=== PATIENT | male | born 1960 | race Caucasian/White ===

== ENCOUNTER 2024-03-27 22:48 | Inpatient (IN) | payer MEDICAID, SELFPAY ==
[2024-03-27 22:49] VITALS: BP 115/93; PULSE 112; RESP 18; TEMP 37.2; O2SAT 93; BMI 20.3
--- NOTE | 2024-03-27 22:56 | CTR_ITS ---
PROCEDURE INFORMATION: Exam: CT Abdomen And Pelvis With Contrast Exam date and time: 03/27/2024 11:25 PM Age: 64 years old Clinical indication: Abdominal pain; Additional info: Abd pain, n/v TECHNIQUE: Imaging protocol: Computed tomography of the abdomen and pelvis with contrast. Radiation optimization: All CT scans at this facility use at least one of these dose optimization techniques: automated exposure control; mA and/or kV adjustment per patient size (includes targeted exams where dose is matched to clinical indication); or iterative reconstruction. Contrast material: OMNI 350; Contrast volume: 100 ml; Contrast route: INTRAVENOUS (IV); COMPARISON: US abdomen complete* [id number] 03/18/2019 9:27 AM RADIATION DOSE METRICS: Total DLP (mGy-cm): 402.93 FINDINGS: Lungs: The lung bases are clear. Heart: Heart size is within normal limits. There is no pericardial effusion or pericardial thickening. Liver: The liver is normal. No hepatic masses are identified. Gallbladder and biliary ducts: The gallbladder is contracted. There is no ductal dilatation. Pancreas: The pancreas is normal. Spleen: The spleen is normal. Adrenal glands: The adrenal glands are normal. Kidneys and ureters: There is normal enhancement of the kidneys. No renal calcifications are identified. There is no hydronephrosis. Bilateral simple renal cysts. There are bilateral subcentimeter renal low-density lesions which are too small for accurate characterization, likely representing simple cysts. Stomach and bowel: Mild colonic diverticulosis without diverticulitis. There is no large or small bowel obstruction. There is no evidence of bowel wall thickening. Appendix: A normal appendix is identified. Intraperitoneal space: No inflammatory changes are identified. There is no free fluid or fluid collection seen. There is no pneumoperitoneum. Vasculature: Atherosclerotic calcifications of the aorta are present. No aneurysm is identified. Lymph nodes: There are few prominent nonspecific gastrohepatic ligament lymph nodes which may be physiologic. No enlarged mesenteric, retroperitoneal, or pelvic sidewall lymph nodes. Urinary bladder: The bladder is unremarkable. Reproductive: There is mild prostatomegaly. Large right hydrocele. Bones/joints: No acute osseous abnormalities are seen. Soft tissues: Small bilateral inguinal hernias containing only fat are present. The soft tissues are otherwise within normal limits. CT/CT abdomen pelvis w con* [id number] IMPRESSION: 1. No acute intra-abdominal or pelvic process. 2. There are few prominent nonspecific gastrohepatic ligament lymph nodes which may be physiologic. 3. Other nonemergent findings above. COMMENTS: Consistent with the [employer]'s Incidental Findings Committee white paper (J Am Johnnie Radiol 2018): Any incidental renal lesion less than 1 cm or classified as too small to characterize, or any incidental cystic renal lesion characterized as simple-appearing, is likely benign. No follow-up imaging is recommended for these lesions per consensus recommendations based on imaging criteria.
[2024-03-27 23:06] LABS: Basophils # 0.2 10^3/uL (0.0-0.1); Basophils % 0.4 %; Eosinophils % 0.1 %; Hematocrit 38.4 % (37-53); Lymphocytes # 2.2 10^3/uL (0.8-4.8); Lymphocytes % 4.2 %; Mean Corpuscular HGB Conc 32.8 g/dL (30-55); Mean Corpuscular Hemoglobin 31.2 pg (27-33); Mean Platelet Volume 10.5 fL (7.4-10.4); Monocytes # 2.7 10^3/uL (0.2-0.9); Monocytes % 5.2 %; Neutrophils % 87.8 %; Nucleated Red Blood Cells % 0 %; Platelet Count 308 10^3/cmm (157-399); Red Blood Count 4.04 10^6/uL (3.85-5.65); Red Cell Distribution Width 12.3 % (12.1-15.1)
[2024-03-27] MEDS: sodium chloride 0.9% 1,000 ML 999 ML IV (23:06)
[2024-03-27] MEDS: pantoprazole 40 mg SDV 80 MG IVP (23:10)
[2024-03-27 23:25] LABS: INR 1.15 (0.8-1.2)
[2024-03-27 23:26] LABS: Partial Thromboplastin Time 29.9 SECONDS (23.9-36.7)
[2024-03-27] MEDS: iohexol 350 mg/mL 500 mL Btl (per mL) IV (23:27)
[2024-03-27 23:30] LABS: Alanine Aminotransferase 6 U/L (0-41); Albumin Level 3.2 g/dL (3.5-5.2); Alkaline Phosphatase 124 U/L (40-130); Aspartate Amino Transferase 12 U/L (0-40); Blood Urea Nitrogen 37 mg/dL (8-23); C Reactive Protein 36.9 mg/L (0.0-4.9); Calcium 8.1 mg/dL (8.5-10.5); Carbon Dioxide 20 mmol/L (22-29); Chloride 99 mmol/L (98-107); Creatinine Clr Calc Pharmacy 129.7904; Globulin 3.1 g/dL (1.3-4.6); Glomerular Filtration Rate 135.6 mL/min (90-130); Glucose 127 mg/dL (65-115); Lipase 7 U/L (13-60); Osmolality Calculated 294 mOsm/kg (285-295); Sodium 137 mmol/L (136-145); Total Bilirubin 0.6 mg/dL (0.15-1.2); Total Protein 6.3 g/dL (6.6-8.7)
[2024-03-27 23:31] LABS: Anion Gap 21.8 (5-19); Potassium 3.8 mmol/L (3.5-5.1)
[2024-03-27 23:35] LABS: Slide Review Slide Review Perform; White Blood Count 51.69 10^3/uL (3.29-11.43)
[2024-03-28] VITALS (12 sets, daily range): BP systolic 88–106; BP diastolic 48–78; PULSE 60–102; RESP 15–20; TEMP 36.3–36.5; O2SAT 91–96; BMI 16.5
--- NOTE | 2024-03-28 00:41 | ED_ITS ---
HPI - Nausea/Vomiting/Diarrhea 2 General: Chief complaint: Nausea/Vomiting/Diarrhea Stated complaint: N/V Vomiting Blood Time Seen by Provider: 03/27/24 22:56 History of Present Illness: 64-year-old man who [facility] after having coffee-ground emesis today. He says he had not been feeling very well and has had some vomiting. He said the coffee-ground emesis did not start till a couple of hours ago. He says he had hep C at 1 point. Otherwise he does not know of any medical problems. He says he feels weak and lightheaded. No known fevers. No focal abdominal pain but he does report some epigastric discomfort. Review of Systems 2 Narrative: Constitutional symptoms: Negative except as documented in HPI. Skin symptoms: Negative except as documented in HPI. Eye symptoms: Negative except as documented in HPI. ENMT symptoms: Negative except as documented in HPI. Respiratory symptoms: Negative except as documented in HPI. Cardiovascular symptoms: Negative except as documented in HPI. Gastrointestinal symptoms: Negative except as documented in HPI. Genitourinary symptoms: Negative except as documented in HPI. Musculoskeletal symptoms: Negative except as documented in HPI. Neurologic symptoms: Negative except as documented in HPI. Psychiatric symptoms: Negative except as documented in HPI. Endocrine symptoms: Negative except as documented in HPI. PFSH ED 2 PFSH: Medical History Hepatitis C No pertinent past medical history Surgical History No pertinent past surgical history Physical Exam 2 Narrative: EXAM NARRATIVE: General: Alert, no acute distress. Skin: Warm, dry. Patient appears sallow Head: Normocephalic, atraumatic. Neck: Supple, trachea midline. Eye: Extraocular movements are intact. Ears, nose, mouth and throat: mucosa moist. Cardiovascular: Regular, initially slightly tachycardic, normal peripheral perfusion. Respiratory: Lungs are clear to auscultation, respirations are non-labored, breath sounds are equal, Symmetrical chest wall expansion. Gastrointestinal: Soft, Nontender, Non distended Musculoskeletal: Normal ROM, no deformity. Neurological: Alert and oriented, No focal neurological deficit observed. Psychiatric: Cooperative, appropriate mood & affect. Course 2 Vital Signs: Vital signs: Vital Signs Temperature 98.9 F 03/27/24 22:49 Pulse Rate 102 H 03/28/24 01:34 Respiratory Rate 20 H 03/28/24 01:34 Blood Pressure 106/78 03/28/24 01:34 Pulse Oximetry 94 03/28/24 01:34 Oxygen Delivery Me thod Room Air 03/28/24 01:34 MDM - Nausea/Vomiting/Diarrhea Medical Decision Making Medical decision making: Differential diagnosis including but not limited to and based on the above HPI, review of systems and physical exam: With coffee-ground emesis would be concern for an upper GI bleed. CBC, BMP. Also with have concern for pancreatitis so a lipase was ordered. Urinalysis ordered. Coags and a type and screen. Orders placed to evaluate differential diagnosis based on the above differential, HPI and physical exam Lab Review: Laboratory results were reviewed and interpreted by myself the emergency room physician. Patient has a white count of 52,000 which would be worrisome for leukemia. No previous records and patient has no known history. Patient has a hemoglobin of 12.6. I do not have any other lab work to compare to but I do believe he has had upper GI bleeding given that he has a BUN of 37 with a creatinine of 0.6. Repeat CBC shows a decrease in a white count from 52-44,000. Hemoglobin is dropping 12.6-11. CT of the abdomen pelvis with contrast: This shows no acute process. This was reviewed and interpreted by myself the emergency room physician. I also reviewed the radiology report. I reviewed the patient's medical record. Reexamination: Patient remains fairly stable. Heart rate has decreased some. No altered mental status. No increased work of breathing. Consultation: I spoke with Dr. Farooq who is admitting the patient. Assessment and plan: Upper GI bleeding Leukocytosis Hematemesis ?2 L normal saline bolus and broad-spectrum antibiotics as there is some concern that he could be septic with his white count. This may be a leukemia type presentation. ? 80 mg IV Protonix. -I discussed the patient with the hospitalist on-call who is admitting the patient. - Discussed findings and plan with patient. Answered any questions. - All laboratory values were reviewed and interpreted personally by myself, the ER physician - All imaging was reviewed and interpreted personally by myself, the ER physician. - Evaluation and treatment of this problem were appropriate in the emergency setting -I spent a total of >35 minutes of critical care time managing the patient, independent of any other practitioner. -The time involved in the performance of separately reportable procedures was not counted towards critical care time. Lab Data 03/28/24 01:05 03/27/24 23:00 Radiology Impressions Abdomen/Pelvis CT 03/27/24 22:56 IMPRESSION: 1. No acute intra-abdominal or pelvic process. 2. There are few prominent nonspecific gastrohepatic ligament lymph nodes which may be physiologic. 3. Other nonemergent findings above. COMMENTS: Consistent with the [employer]'s Incidental Findings Committee white paper (J Am Johnnie Radiol 2018): Any incidental renal lesion less than 1 cm or classified as too small to characterize, or any incidental cystic renal lesion characterized as simple-appearing, is likely benign. No follow-up imaging is recommended for these lesions per consensus recommendations based on imaging criteria. Laboratory Results WBC 44.85 10^3/uL (3.29-11.43) H* 03/28/24 01:05 RBC 3.49 10^6/uL (3.85-5.65) L 03/28/24 01:05 Hgb 11.00 g/dL (11.27-16.99) L 03/28/24 01:05 Hct 33.7 % (37-53) L 03/28/24 01:05 MCV 96.6 fl (82-101) 03/28/24 01:05 MCH 31.5 pg (27-33) 03/28/24 01:05 MCHC 32.6 g/dL (30-55) 03/28/24 01:05 RDW 12.4 % (12.1-15.1) 03/28/24 01:05 Plt Count 262 10^3/cmm (157-399) 03/28/24 01:05 MPV 10.3 fL (7.4-10.4) 03/28/24 01:05 Neut % (Auto) 86.9 % 03/28/24 01:05 Lymph % (Auto) 4.7 % 03/28/24 01:05 [place] % (Auto) 6.2 % 03/28/24 01:05 Eos % (Auto) 0.0 % 03/28/24 01:05 Baso % (Auto) 0.4 % 03/28/24 01:05 Neut # (Auto) 38.98 10^3/uL (1.8-7.7) H 03/28/24 01:05 Lymph # (Auto) 2.1 10^3/uL (0.8-4.8) 03/28/24 01:05 [place] # (Auto) 2.8 10^3/uL (0.2-0.9) H 03/28/24 01:05 Eos # (Auto) 0.0 10^3/uL (0.0-0.8) 03/28/24 01:05 Baso # (Auto) 0.2 10^3/uL (0.0-0.1) H 03/28/24 01:05 Nucleated RBC % (auto) 0 % 03/28/24 01:05 Nucleated RBCs # 0.0 /100WBC 03/28/24 01:05 PT 15.10 SECONDS (12.1-14.9) H 03/27/24 23:00 INR 1.15 (0.8-1.2) 03/27/24 23:00 APTT 29.9 SECONDS (23.9-36.7) 03/27/24 23:00 D-Dimer 0.86 ug/mLFEU (0-0.59) H 03/27/24 23:00 Sodium 137 mmol/L (136-145) 03/27/24 23:00 Potassium 3.8 mmol/L (3.5-5.1) 03/27/24 23:00 Chloride 99 mmol/L (98-107) 03/27/24 23:00 Carbon Dioxide 20 mmol/L (22-29) L 03/27/24 23:00 Anion Gap 21.8 (5-19) H 03/27/24 23:00 BUN 37 mg/dL (8-23) H 03/27/24 23:00 Creatinine 0.6 mg/dL (0.7-1.2) L 03/27/24 23:00 GFR Calculation 135.6 mL/min (90-130) H 03/27/24 23:00 Glucose 127 mg/dL (65-115) H 03/27/24 23:00 Calculated Osmolality 294 mOsm/kg (285-295) 03/27/24 23:00 Lactic Acid 4.0 mmol/L (0.5-2.2) H 03/27/24 23:41 Uric Acid 4.4 mg/dL (3.4-7.0) 03/27/24 23:00 Calcium 8.1 mg/dL (8.5-10.5) L 03/27/24 23:00 Total Bilirubin 0.6 mg/dL (0.15-1.2) 03/27/24 23:00 AST 12 U/L (0-40) 03/27/24 23:00 ALT 6 U/L (0-41) 03/27/24 23:00 Alkaline Phosphatase 124 U/L (40-130) 03/27/24 23:00 C-Reactive Protein 36.9 mg/L (0.0-4.9) H 03/27/24 23:00 Total Protein 6.3 g/dL (6.6-8.7) L 03/27/24 23:00 Albumin 3.2 g/dL (3.5-5.2) L 03/27/24 23:00 Globulin 3.1 g/dL (1.3-4.6) 03/27/24 23:00 Lipase 7 U/L (13-60) L 03/27/24 23:00 Blood Type O Positive 03/27/24 23:49 Rho(D) Type Rh positive 03/27/24 23:49 Antibody Screen Negative 03/27/24 23:49 All radiology interpretation(s) finalized by discharge Discharge Plan Discharge Patient Disposition: Admitted As Inpatient Clinical Impression: Hematemesis, Leukocytosis Condition: Stable 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
[2024-03-28] MEDS: cefepime 1,000 mg SDV 2000 MG IVP (00:45)
[2024-03-28 01:10] LABS: Basophils # 0.2 10^3/uL (0.0-0.1); Basophils % 0.4 %; Hematocrit 33.7 % (37-53); Lymphocytes # 2.1 10^3/uL (0.8-4.8); Lymphocytes % 4.7 %; Mean Corpuscular HGB Conc 32.6 g/dL (30-55); Mean Corpuscular Hemoglobin 31.5 pg (27-33); Mean Corpuscular Volume 96.6 fl (82-101); Mean Platelet Volume 10.3 fL (7.4-10.4); Monocytes # 2.8 10^3/uL (0.2-0.9); Monocytes % 6.2 %; Neutrophils # 38.98 10^3/uL (1.8-7.7); Neutrophils % 86.9 %; Nucleated Red Blood Cells % 0 %; Platelet Count 262 10^3/cmm (157-399); Red Blood Count 3.49 10^6/uL (3.85-5.65); Red Cell Distribution Width 12.4 % (12.1-15.1)
[2024-03-28] MEDS: vancomycin 1,500 MG/300 ML PIGGYBACK 200 MG IV (01:11)
--- NOTE | 2024-03-28 01:16 | CTR_ITS ---
PROCEDURE INFORMATION: Exam: CT Chest Without Contrast; Diagnostic Exam date and time: 03/28/2024 1:31 AM Age: 64 years old Clinical indication: Abnormal findings; Abnormal diagnostic tests; Abnormal ekg; Additional info: Wbc 52k TECHNIQUE: Imaging protocol: Diagnostic computed tomography of the chest without contrast. Radiation optimization: All CT scans at this facility use at least one of these dose optimization techniques: automated exposure control; mA and/or kV adjustment per patient size (includes targeted exams where dose is matched to clinical indication); or iterative reconstruction. 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 Large left upper lobe mass is inseparable from the mediastinum. 9 mm anterior right upper lobe pulmonary nodule, increased in size compared to 4 mm in 2019. Moderate pulmonary emphysema. Left upper lobe calcified granuloma. No pulmonary consolidation. Pleural spaces: Pleura Heart: Heart size is within normal limits. There is no pericardial effusion or pericardial thickening. Coronary arteries: No coronary artery calcification. Lymph nodes: Mildly enlarged precarinal lymph node measuring 16 x 9 mm. Multiple calcified mediastinal and left hilar lymph nodes. Hilar piyush enlargement is not well assessed due to lack of intravenous contrast. No enlarged axillary lymph nodes Vasculature: Atherosclerotic calcifications of the aorta are present. No aneurysm is identified. Bones/joints: No acute osseous abnormalities are seen. Chronic appearing compression fracture of T4. Severe degenerative change of the left shoulder. Soft tissues: The soft tissues are within normal limits. CT/CT chest con [id number] IMPRESSION: 1. 7.9 x 6.2 x 6.7 cm left suprahilar mass with large area of central necrosis likely originating in the left upper lobe. Tissue sampling is recommended. 2. Mildly enlarged precarinal lymph node measuring 16 x 9 mm. 3. 9 mm anterior right upper lobe pulmonary nodule, increased in size compared to 4 mm in 2019. COMMENTS: The presence of pulmonary emphysema on CT is an independent risk factor for lung cancer. In the absence of a history or active diagnosis of lung cancer, it is recommended that this patient with emphysema be evaluated for enrollment in a low dose CT lung cancer screening program.
[2024-03-28 01:20] LABS: Uric Acid 4.4 mg/dL (3.4-7.0)
--- NOTE | 2024-03-28 01:20 | P.HP_ITS ---
Providers/Chief Complaint 2 Chief Complaint: N/V Vomiting Blood History of Present Illness Cresencio Mcfadden is a 64 year old male with history of untreated hepatitis C, does not follow-up with PCP, does not take any medications at home presented with chief complaint of blood in vomiting. Patient lives with his brother and [id number], smokes 1 pack/day, uses marijuana, no history of IV drug abuse, stating that he drinks alcohol occasionally, presenting today because for the last 24 hours he has been feeling nauseous and experienced 6 episodes of vomiting, with his first episode of vomiting he has been noticing blood that prompted his visit to the ER. In the ER he was diagnosed with significant leukocytosis, leukemia lymphoma panel requested along CT chest abdomen pelvis. Patient is not endorsing any history of cancer in the past. However stating that his father and grandfather had lung cancer. Patient is stating that he has been skinny throughout his life. Patient has received 1 L IV fluids along vancomycin and cefepime, Review of Systems 2 Const: Reports: chills and change in weight Eyes: Denies: change in vision ENMT: Denies: throat pain Card: Denies: chest pain Resp: Reports: dyspnea GI: Reports: nausea and vomiting; Denies: abdominal pain : Denies: flank pain Musc: Denies: neck pain Medications/Allergies Allergies Allergy/AdvReac Type Severity Reaction Status Date / Time No Known Allergies Allergy Verified 03/28/24 00:25 PFSH Acute 2 PFSH: Medical History Hepatitis C No pertinent past medical history Surgical History No pertinent past surgical history Vitals/I&O/Wt Last Vital Signs Temp 98.9 F 03/27/24 22:49 Pulse 112 H 03/27/24 22:49 Resp 18 03/27/24 22:49 BP 115/93 03/27/24 22:49 Pulse Ox 93 03/27/24 22:49 Weight last 48 hrs Weight 54.431 kg Weight 68.039 kg Physical Exam 2 Narrative: Cachectic, malnourished Unkept appearance Skin tattoos S1, S2 Nonfocal neuroexam GCS 15 Sarcopenia No audible stridor or wheezing Family at the bedside Significant muscle mass loss Signs of dehydration present Tachycardia Data 03/28/24 01:05 03/27/24 23:00 A&P Assessment and plan (1) Leukocytosis: (2) Hematemesis: (3) Protein calorie malnutrition: (4) Dehydration: (5) Sarcopenia: Plan Significant leukocytosis with hematemesis High lactic acid High lactic acid likely related to significant dehydration and starvation Start IV fluids There is no active source of infection CT abdomen pelvis unremarkable, no signs of perforation or significant lymphadenopathy other than around gastrohepatic ligament, patient is stating that he has history hepatitis C which was treated successfully Requested CT chest as well Patient is an active smoker endorsing family history of lung cancer Patient does not follow-up with PCP Requesting drug screen and urine screen Patient had received 1 L IV fluids along antibiotics Patient is afebrile Tachycardia and tachypnea is likely related to starvation ketosis which is improving with IV fluids Monitor for development of sepsis Considering cachexia malnourishment I will request PSA CEA level CA 19-9 Full code Walsh diet DVT prophylaxis: Contraindicated would use SCDs for now start Protonix and sucralfate If hemoglobin keeps trending down he may need EGD during this hospitalization Leukemia lymphoma panel sent Attestations 2 Medical Necessity Statement*: More than 2 midnights anticipated Diagnoses Leukocytosis D72.829 Hematemesis K92.0 Protein calorie malnutrition E46 Dehydration E86.0 Sarcopenia M62.84
[2024-03-28 01:29] LABS: White Blood Count 44.85 10^3/uL (3.29-11.43)
[2024-03-28 01:30] LABS: Reflex Lactate Order REFLEX LACTIC ORDERD
[2024-03-28 01:47] LABS: D Dimer 0.86 ug/mLFEU (0-0.59)
[2024-03-28 02:00] LABS: Carcinoembryonic Antigen 5.1 ng/mL (0.0-4.7); Tumor Marker Alpha Fetoprotein 3.3 ng/mL (0-8.3)
[2024-03-28 02:27] LABS: Cancer Antigen 19 9 10.92 U/mL (0-35)
[2024-03-28 02:55] LABS: Lactic Acid level (Lactate) 1.5 mmol/L (0.5-2.2)
[2024-03-28] MEDS: sodium chloride 0.9% 1,000 ML 75 ML IV ×2 (03:45→18:56)
[2024-03-28 06:18] LABS: Basophils # 0.2 10^3/uL (0.0-0.1); Basophils % 0.4 %; Eosinophils # 0.1 10^3/uL (0.0-0.8); Eosinophils % 0.2 %; Hematocrit 32.4 % (37-53); Lymphocytes # 2.6 10^3/uL (0.8-4.8); Lymphocytes % 6.4 %; Mean Corpuscular HGB Conc 33.3 g/dL (30-55); Mean Corpuscular Volume 95.9 fl (82-101); Mean Platelet Volume 10.5 fL (7.4-10.4); Monocytes # 2.7 10^3/uL (0.2-0.9); Monocytes % 6.6 %; Neutrophils # 34.45 10^3/uL (1.8-7.7); Neutrophils % 84.9 %; Nucleated Red Blood Cells % 0 %; Platelet Count 261 10^3/cmm (157-399); Red Blood Count 3.38 10^6/uL (3.85-5.65); Red Cell Distribution Width 12.4 % (12.1-15.1)
[2024-03-28 06:31] LABS: Alanine Aminotransferase < 5 U/L (0-41); Albumin Level 2.7 g/dL (3.5-5.2); Alkaline Phosphatase 97 U/L (40-130); Anion Gap 13.2 (5-19); Aspartate Amino Transferase 9 U/L (0-40); Blood Urea Nitrogen 29 mg/dL (8-23); C Reactive Protein 26.6 mg/L (0.0-4.9); Calcium 7.6 mg/dL (8.5-10.5); Carbon Dioxide 24 mmol/L (22-29); Chloride 105 mmol/L (98-107); Creatinine Clr Calc Pharmacy 115.8683; Globulin 3.1 g/dL (1.3-4.6); Glomerular Filtration Rate 167.4 mL/min (90-130); Glucose 112 mg/dL (65-115); Magnesium 1.6 mg/dL (1.7-2.3); Osmolality Calculated 295 mOsm/kg (285-295); Phosphorus 3.1 mg/dL (2.5-4.5); Potassium 3.2 mmol/L (3.5-5.1); Sodium 139 mmol/L (136-145); Total Bilirubin 0.5 mg/dL (0.15-1.2); Total Protein 5.8 g/dL (6.6-8.7)
[2024-03-28 06:43] LABS: PSA Screen - Urology 1.29 ng/mL (0-4)
[2024-03-28 06:48] LABS: White Blood Count 40.56 10^3/uL (3.29-11.43)
[2024-03-28 06:52] LABS: Thyroid Stimulating Hormone 0.58 uIU/mL (0.27-4.20); Vitamin B12 606 pg/mL (232-1245)
[2024-03-28 07:03] LABS: Estmated Average Glucose 111; Hemoglobin A1C 5.5 % (4.0-6.0)
[2024-03-28 07:34] LABS: Add Urine Microscopic? NO; Charge for UA Resulting for Rev
[2024-03-28 07:50] LABS: Bilirubin Urine Neg (Negative); Blood Urine Neg (Negative); Glucose Urine UA Norm (Normal); Ketones Urine 1+ (Negative); Leukocyte Esterase Urine Negative (Negative); Nitrate Urine Negative (Negative); Protein Urine Neg (Negative); Specific Gravity, Urine 1.005 (1.005-1.030); Urine Appearance Clear (CLEAR); Urine Color Yellow (Yellow); Urobilinogen Urine Neg (Negative); pH Urine 5 (5-7)
[2024-03-28 07:59] LABS: Amphetamines Screen Urine Negative (Negative); Barbiturates Screen Urine Negative (Negative); Benzodiazepines Screen Urine Negative (Negative); Cocaine Screen Urine Negative (Negative); Opiate Screen Urine Negative (Negative); PCP Screen Urine Negative (Negative); THC Screen Urine Positive (Negative)
[2024-03-28] MEDS: pantoprazole 40 mg SDV IVP ×2 (08:18→18:52)
[2024-03-28] MEDS: levoFLOXacin 750 mg Tablet PO (08:18)
[2024-03-28] MEDS: sucralfate 1 gm Tablet PO ×2 (08:18→14:56)
[2024-03-28] MEDS: morphine IR 15 mg Tablet PO ×2 (08:19→14:58)
--- NOTE | 2024-03-28 15:34 | P.TS_ITS ---
Transfer Summary Providers Date of Admission: 03/28/24 02:18 Date of Discharge/Transfer: 03/28/24 Attending Provider at Admission: Ben Farooq MD Attending Provider at Transfer: Roseanne Heredia MD Transfer Plans: Anticipated date of transfer: 03/28/24 . Receiving Facility: [facility] . Receiving Provider: Dr. Pat/ hospitalist . Diagnoses at Discharge Discharge Diagnosis (1) Leukocytosis: Status: Acute (2) Hematemesis: Status: Acute (3) Protein calorie malnutrition: Status: Acute (4) Dehydration: Status: Acute (5) Sarcopenia: Status: Acute (6) Lung mass: Status: Acute (7) Mediastinal lymphadenopathy: Status: Acute Reason for Visit Reason for Visit N/V Vomiting Blood Hospital Course Hospital Course 64-year-old male who does not relate any significant past medical history apart from treated hepatitis C several years ago and marijuana use presented to [facility] last night with chief complaints of hematemesis. Patient had had nausea and vomiting approximately 24 hours prior to admission. He states that he had about 6 episodes of vomiting and with the last 1 he noted blood streaking and therefore presented into the emergency room. His hemoglobin upon initial arrival was 12.6, this has trended down to 10.8 today. He has not had any episodes of hematemesis in the hospital. Incidentally he was also found to have several other abnormalities including leukocytosis of 51,000, with repeat number at 44,000. Therefore presumed to be accurate. Differential noting to be predominantly neutrophilia 84.9%. Peripheral smear is pending at this time. CT of the abdomen and pelvis was without any acute abnormalities, however CT of the chest found a 7.9 x 6.2 x 6.7 cm suprahilar mass with large area of central necrosis likely originating from the left upper lobe. This mass was noted to be inseparable from the mediastinum. He was also found to have a right-sided pulmonary nodule, 9 mm in size. Note made of enlarged precarinal lymph node measuring 16 x 9 mm. Patient denies any known history of malignancy in the past. CT of the abdomen made note a few prominent nonspecific gastrohepatic ligament lymph nodes which may be physiologic. There were no enlarged mesenteric retroperitoneal pelvic sidewall lymph nodes. Case was discussed with interventional radiology, recommended bronchoscopic approach for tissue diagnosis rather than anterior IR approach as the mass appears to be more easily accessible via bronchoscopy. He has received cefepime --> ceftriaxone, a dose of iv vancomycin and levaquin during hospital course. Given the above findings, patient would need additional testing involving multiple specialties including pulmonology for bronchoscopy and tissue diagnosis of lung mass, hematology for leukocytosis, concern for underlying malignancy and gastroenterology given original presentation with hematemesis and downtrending hemoglobin. May need upper GI endoscopy additionally. we do not currently have pulmonology or inpatient hematology services at our center. He is therefore being transferred to [facility] where all the specialties are available. Physical Exam Narrative: General: No acute distress, AO x3 HEENT: PERRLA, pupils bilaterally equal and reactive, pallors not present Chest: Normal vesicular breath sounds, no added sounds, equal good air entry bilaterally CVS: S1-S2 regular, no murmurs, no tachycardia, no gallops, no rubs Abdomen: Soft, nontender, no organomegaly, bowel sounds present Neuro: No focal deficits, no facial deformity, AO x3, power 5/5 in all limbs TS Data Studies Completed and Pending Pending at discharge Category Date Time Status Blood Culture Stat Lab 03/28/24 12:55 Results HIV 1&2 Antigen & Antibody Routine Lab 03/28/24 05:59 Received LAB Peripheral Smear Routine Lab 03/28/24 05:59 Received Completed Studies During Hospitalization Category Date Time Status CT abdomen pelvis w con* [id number] Stat Cat Scan 03/27/24 22:[address] chest wo con [id number] Stat Cat Scan 03/28/24 01:16 Completed Laboratory Last Values WBC 40.56 10^3/uL (3.29-11.43) H* 03/28/24 05:59 RBC 3.38 10^6/uL (3.85-5.65) L 03/28/24 05:59 Hgb 10.80 g/dL (11.27-16.99) L 03/28/24 05:59 Hct 32.4 % (37-53) L 03/28/24 05:59 MCV 95.9 fl (82-101) 03/28/24 05:59 MCH 32.0 pg (27-33) 03/28/24 05:59 MCHC 33.3 g/dL (30-55) 03/28/24 05:59 RDW 12.4 % (12.1-15.1) 03/28/24 05:59 Plt Count 261 10^3/cmm (157-399) 03/28/24 05:59 MPV 10.5 fL (7.4-10.4) H 03/28/24 05:59 Neut % (Auto) 84.9 % 03/28/24 05:59 Lymph % (Auto) 6.4 % 03/28/24 05:59 [place] % (Auto) 6.6 % 03/28/24 05:59 Eos % (Auto) 0.2 % 03/28/24 05:59 Baso % (Auto) 0.4 % 03/28/24 05:59 Neut # (Auto) 34.45 10^3/uL (1.8-7.7) H 03/28/24 05:59 Lymph # (Auto) 2.6 10^3/uL (0.8-4.8) 03/28/24 05:59 [place] # (Auto) 2.7 10^3/uL (0.2-0.9) H 03/28/24 05:59 Eos # (Auto) 0.1 10^3/uL (0.0-0.8) 03/28/24 05:59 Baso # (Auto) 0.2 10^3/uL (0.0-0.1) H 03/28/24 05:59 Nucleated RBC % (auto) 0 % 03/28/24 05:59 Nucleated RBCs # 0.0 /100WBC 03/28/24 05:59 PT 15.10 SECONDS (12.1-14.9) H 03/27/24 23:00 INR 1.15 (0.8-1.2) 03/27/24 23:00 APTT 29.9 SECONDS (23.9-36.7) 03/27/24 23:00 D-Dimer 0.86 ug/mLFEU (0-0.59) H 03/27/24 23:00 Sodium 139 mmol/L (136-145) 03/28/24 05:59 Potassium 3.2 mmol/L (3.5-5.1) L 03/28/24 05:59 Chloride 105 mmol/L (98-107) 03/28/24 05:59 Carbon Dioxide 24 mmol/L (22-29) 03/28/24 05:59 Anion Gap 13.2 (5-19) 03/28/24 05:59 BUN 29 mg/dL (8-23) H 03/28/24 05:59 Creatinine 0.5 mg/dL (0.7-1.2) L 03/28/24 05:59 GFR Calculation 167.4 mL/min (90-130) H 03/28/24 05:59 Glucose 112 mg/dL (65-115) 03/28/24 05:59 Estimat Average Glucose 111 03/28/24 05:59 Hemoglobin A1c 5.5 % (4.0-6.0) 03/28/24 05:59 Calculated Osmolality 295 mOsm/kg (285-295) 03/28/24 05:59 Lactic Acid 4.0 mmol/L (0.5-2.2) H 03/27/24 23:41 Lactic Acid (Sepsis) 1.5 mmol/L (0.5-2.2) 03/28/24 02:20 Uric Acid 4.4 mg/dL (3.4-7.0) 03/27/24 23:00 Calcium 7.6 mg/dL (8.5-10.5) L 03/28/24 05:59 Phosphorus 3.1 mg/dL (2.5-4.5) 03/28/24 05:59 Magnesium 1.6 mg/dL (1.7-2.3) L 03/28/24 05:59 Total Bilirubin 0.5 mg/dL (0.15-1.2) 03/28/24 05:59 AST 9 U/L (0-40) 03/28/24 05:59 ALT < 5 U/L (0-41) 03/28/24 05:59 Alkaline Phosphatase 97 U/L (40-130) 03/28/24 05:59 C-Reactive Protein 26.6 mg/L (0.0-4.9) H 03/28/24 05:59 Total Protein 5.8 g/dL (6.6-8.7) L 03/28/24 05:59 Albumin 2.7 g/dL (3.5-5.2) L 03/28/24 05:59 Globulin 3.1 g/dL (1.3-4.6) 03/28/24 05:59 Lipase 7 U/L (13-60) L 03/27/24 23:00 Tumor Marker AFP 3.3 ng/mL (0-8.3) 03/27/24 23:00 Carcinoembryonic Ag 5.1 ng/mL (0.0-4.7) H 03/27/24 23:00 CA 19-9 Antigen 10.92 U/mL (0-35) 03/27/24 23:00 PSA Screen 1.29 ng/mL (0-4) 03/28/24 05:59 Vitamin B12 606 pg/mL (232-1245) 03/28/24 05:59 TSH 0.58 uIU/mL (0.27-4.20) 03/28/24 05:59 Urine Color Yellow (Yellow) 03/28/24 07:10 Urine Appearance Clear (CLEAR) 03/28/24 07:10 Urine pH 5 (5-7) 03/28/24 07:10 Ur Specific [place] 1.005 (1.005-1.030) 03/28/24 07:10 Urine Protein Neg (Negative) 03/28/24 07:10 Urine Glucose (UA) Norm (Normal) 03/28/24 07:10 Urine Ketones 1+ (Negative) H 03/28/24 07:10 Urine Blood Neg (Negative) 03/28/24 07:10 Urine Nitrate Negative (Negative) 03/28/24 07:10 Urine Bilirubin Neg (Negative) 03/28/24 07:10 Urine Urobilinogen Neg mg/dL (Negative) 03/28/24 07:10 Ur Leukocyte Esterase Negative (Negative) 03/28/24 07:10 Urine Opiates Screen Negative ng/mL (Negative) 03/28/24 07:10 Ur Barbiturates Screen Negative ng/mL (Negative) 03/28/24 07:10 Ur Phencyclidine Scrn Negative ng/mL (Negative) 03/28/24 07:10 Ur Amphetamines Screen Negative ng/mL (Negative) 03/28/24 07:10 U Benzodiazepines Scrn Negative ng/mL (Negative) 03/28/24 07:10 Urine Cocaine Screen Negative ng/mL (Negative) 03/28/24 07:10 U Marijuana (THC) Screen Positive ng/mL (Negative) H 03/28/24 07:10 Blood Type O Positive 07/11/24 23:49 Rho(D) Type Rh positive 03/27/24 23:49 Antibody Screen Negative 03/27/24 23:49 Radiology Impressions Abdomen/Pelvis CT 03/27/24 22:56 IMPRESSION: 1. No acute intra-abdominal or pelvic process. 2. There are few prominent nonspecific gastrohepatic ligament lymph nodes which may be physiologic. 3. Other nonemergent findings above. COMMENTS: Consistent with the [employer]'s Incidental Findings Committee white paper (J Am Johnnie Radiol 2018): Any incidental renal lesion less than 1 cm or classified as too small to characterize, or any incidental cystic renal lesion characterized as simple-appearing, is likely benign. No follow-up imaging is recommended for these lesions per consensus recommendations based on imaging criteria. Chest CT 03/28/24 01:16 IMPRESSION: 1. 7.9 x 6.2 x 6.7 cm left suprahilar mass with large area of central necrosis likely originating in the left upper lobe. Tissue sampling is recommended. 2. Mildly enlarged precarinal lymph node measuring 16 x 9 mm. 3. 9 mm anterior right upper lobe pulmonary nodule, increased in size compared to 4 mm in 2019. COMMENTS: The presence of pulmonary emphysema on CT is an independent risk factor for lung cancer. In the absence of a history or active diagnosis of lung cancer, it is recommended that this patient with emphysema be evaluated for enrollment in a low dose CT lung cancer screening program. Recent Clincial Data Last Vital Signs Temp 97.7 F 03/28/24 11:54 Pulse 60 03/28/24 11:54 Resp 18 03/28/24 14:58 BP 91/53 03/28/24 11:54 Pulse Ox 96 03/28/24 11:54 O2 Del Method Room Air 03/28/24 11:54 Vital Signs Temp Pulse Resp BP Pulse Ox O2 Del Method 03/28/24 14:58 18 03/28/24 11:54 97.7 F 60 18 91/53 96 Room Air 03/28/24 08:28 70 16 94 Room Air 03/28/24 08:21 97.4 F L 85 18 101/68 94 Room Air 03/28/24 08:19 18 Intake & Output/Weight 03/26/24 03/27/24 03/28/24 03/29/24 06:59 06:59 06:59 06:59 Intake Total 1300 / 1300 960 / 960 Balance 1300 / 1300 960 / 960 Weight 54.885 kg Vitals Last Vital Signs Temp 97.7 F 03/28/24 11:54 Pulse 60 03/28/24 11:54 Resp 18 03/28/24 14:58 BP 91/53 03/28/24 11:54 Pulse Ox 96 03/28/24 11:54 O2 Del Method Room Air 03/28/24 11:54 TS Medications Medications Acetaminophen (Acetaminophen 500 Mg Tablet) 500 mg PO Q4H PRN PRN Reason: fever Albuterol/Ipratropium (Ipratropium-Albuterol 3 Ml Neb) 3 ml INHALATION Q6H PRN PRN Reason: SHORTNESS OF BREATH Sodium Chloride (Sodium Chloride 0.9%) 1,000 mls @ 75 mls/hr IV .[id number] [facility] Last Admin: 03/28/24 03:45 Dose: 75 mls/hr Sodium Chloride (Sodium Chloride 0.9%) 1,000 mls @ 999 mls/hr IV .Q1H1M ONE Stop: 03/28/24 16:07 Levofloxacin (Levofloxacin 750 Mg Tablet) 750 mg PO DAILY [facility]; Protocol Last Admin: 03/28/24 08:18 Dose: 750 mg Morphine Sulfate (Morphine Ir 15 Mg Tablet) 15 mg PO Q6H PRN PRN Reason: MODERATE PAIN Last Admin: 03/28/24 14:58 Dose: 15 mg Ondansetron HCl (Ondansetron 2 Mg/Ml Sdv 2 Ml) 4 mg IVP Q6H PRN PRN Reason: NAUSEA AND VOMITING Pantoprazole Sodium (Pantoprazole 40 Mg Sdv) 40 mg IVP BID [facility] Last Admin: 03/28/24 08:18 Dose: 40 mg Senna/Docusate Sodium (Sennosides-Docusate Tablet) 1 tab PO DAILY [facility] Last Admin: 03/28/24 08:26 Dose: Not Given Sucralfate (Sucralfate 1 Gm Tablet) 1 gm PO TID [facility] Last Admin: 03/28/24 14:56 Dose: 1 gm Discontinued Medications Cefepime HCl (Cefepime 1,000 Mg Sdv) 2,000 mg IVP ONCE ONE; Protocol Stop: 03/28/24 00:14 Last Admin: 03/28/24 00:45 Dose: 2,000 mg Sodium Chloride (Sodium Chloride 0.9%) 1,000 mls @ 999 mls/hr IV .Q1H1M ONE Stop: 03/27/24 23:56 Last Infusion: 03/28/24 03:33 Dose: Infused Vancomycin HCl / Sodium (Chloride) 250 mls @ 0 mls/hr [id number] PROTOCOL NARA; Protocol Vancomycin/PEG/NADA/Lysine/Water (Vancocin) 1,500 mg in 300 mls @ 200 mls/hr IV ONCE ONE Stop: 03/28/24 01:59 Last Infusion: 03/28/24 03:33 Dose: Infused Vancomycin/PEG/NADA/Lysine/Water (Vancocin) 1,250 mg in 250 mls @ 250 mls/hr IV Q12H [facility] Iohexol (Iohexol 350 Mg/Ml 500 Ml Btl (Per Ml)) 0 ml IV ONCE ONE Stop: 03/27/24 23:28 Last Admin: 03/27/24 23:27 Dose: 100 ml Pantoprazole Sodium (Pantoprazole 40 Mg Sdv) 80 mg IVP ONCE ONE Stop: 03/27/24 22:57 Last Admin: 03/27/24 23:10 Dose: 80 mg Allergies No Known Allergies Allergy (Verified 03/28/24 00:25) Home Medications No Known Home Medications 03/28/24 [History Confirmed 03/28/24] Discharge Plan Discharge Patient Disposition: Xfer Other Condition: Stable Prescriptions: No Action No Known Home Medications Discharge Orders: Transfer Out of Facility (Order); Ordered 03/28/24 Ordered By: Roseanne Heredia Patient Instructions: Opioid Safety Transfer Attestations Time Spent in Transfer Care: greater than 30 min Quality Metrics Clinical Quality Measures [ No reported AMI, CVA or VTE this stay] Coding Level of Care Code Acute Code for Chg Fwd Diagnoses Leukocytosis D72.829 Hematemesis K92.0 Protein calorie malnutrition E46 Dehydration E86.0 Sarcopenia M62.84 Lung mass R91.8 Mediastinal lymphadenopathy R59.0
[2024-03-28 15:42] LABS: HIV 1 & 2 Antibody Non-Reactive (Non-Reactiv); HIV 1 & 2 Antigen Non-Reactive (Non-Reactiv)
[2024-03-28 15:47] LABS: LAB Peripheral Smear Sent for Review
[2024-03-28] MEDS: sodium chloride 0.9% 1,000 ML 999 ML IV ×2 (16:36→17:59)
[2024-03-28 18:28] LABS: Hematocrit 28.4 % (37-53)
[2024-03-28] MEDS: cefTRIAXone 1,000 mg SDV 1000 MG IVP (18:53)
[2024-03-31 11:30] LABS: Leukemia Profile (BBPL) See Report
== END 2024-03-28 18:45 | disposition short-term general hospital (02) | DRG 378 ==
LOC: ER 03-28 01:50 → MEDSURG 03-28 02:18
PROVIDERS: Nurse Practitioner Family; Admitting Provider Internal Medicine; Emergency Provider Emergency Medicine; Visit Provider Student in an Organized Health Care Education/Training Program
DX: K92.0 Hematemesis (principal); E46 Unspecified protein-calorie malnutrition; Z68.1 Body mass index [BMI] 19.9 or less, adult; D72.829 Elevated white blood cell count, unspecified; E86.0 Dehydration; M62.84 Sarcopenia; R59.0 Localized enlarged lymph nodes; R91.1 Solitary pulmonary nodule; F17.210 Nicotine dependence, cigarettes, uncomplicated; F12.90 Cannabis use, unspecified, uncomplicated; B19.20 Unspecified viral hepatitis C without hepatic coma
CPT/HCPCS: 36415; 71250; 74177; 80053; 80306; 80503; 81003; 82105; 82378; 82607; 83036; 83605; 83690; 83735; 84100; 84443; 84550; 85014; 85018; 85025; 85378; 85610; 85730; 86140; 86301; 86850; 86900; 87040; 87806; 88184; 88185; 96374; 96375; 97161; 99285; C9113; G0103; J0692; J0696; J3370; J7030; Q9967

== ENCOUNTER 2024-05-27 19:57 | Emergency (ER) | payer MEDICAID, SELFPAY ==
[2024-05-27] VITALS (11 sets, daily range): BP systolic 76–114; BP diastolic 45–65; PULSE 88–190; RESP 16–18; TEMP 36.5; O2SAT 91–100; BMI 13.5
--- NOTE | 2024-05-27 20:07 | ECG_ITS ---
[facility] Test Date: 2024-05-27 Pat Name: Cresencio Mcfadden Department: Room: Gender: Male [employer]: : 1960 Requested By: Navya Dozier Order Number: [id number] Gómez MD: Mandi Mei M.D. Measurements Intervals [place] Rate: 96 P: 74 MI: 91 QRS: 85 QRSD: 88 T: 86 QT: 380 QTc: 482 Interpretive Statements SINUS RHYTHM WITH SHORT MI INTERVAL WITH FREQUENT SUPRAVENTRICULAR PREMATURE COMPLEXES ABNORMAL RHYTHM ECG No previous ECG available for comparison Electronically Signed On 05-27-2024 21:40:27 CDT by Mandi Mei M.D. [email or web address]
--- NOTE | 2024-05-27 20:07 | CTR_ITS ---
PROCEDURE INFORMATION: Exam: CT Head Without Contrast Exam date and time: 05/27/2024 9:03 PM Age: 64 years old Clinical indication: Weakness, extremity TECHNIQUE: Imaging protocol: Computed tomography of the head without contrast. Radiation optimization: All CT scans at this facility use at least one of these dose optimization techniques: automated exposure control; mA and/or kV adjustment per patient size (includes targeted exams where dose is matched to clinical indication); or iterative reconstruction. COMPARISON: CT head wo con* [id number] 04/03/2019 10:53 PM RADIATION DOSE METRICS: Total DLP (mGy-cm): 1126 FINDINGS: Brain: No acute intracranial hemorrhage. Vasogenic edema in the left frontal lobe and to a lesser degree in the right occipital lobe. There are ill-defined lesions in both regions (series 4, images 23 and 44) concerning for metastatic disease given history of metastasis. Cerebral ventricles: No ventriculomegaly. Paranasal sinuses: Visualized sinuses are unremarkable. No fluid levels. Mastoid air cells: Visualized mastoid air cells are well aerated. Bones: Unremarkable. No acute fracture. Soft tissues: Unremarkable. CT/CT head wo con* [id number] IMPRESSION: Brain metastasis in the left frontal and right occipital lobes with surrounding vasogenic edema.
--- NOTE | 2024-05-27 20:07 | XRR_ITS ---
PROCEDURE INFORMATION: Exam: XR Chest Exam date and time: 05/27/2024 8:15 PM Age: 64 years old Clinical indication: Shortness of breath; Additional info: Weakness TECHNIQUE: Imaging protocol: Radiologic exam of the chest. Views: 1 view. COMPARISON: CT chest con [id number] 03/28/2024 1:31 AM FINDINGS: Lungs: Large mass in the left hilar station is again demonstrated and seen to better advantage on the chest CT dated 03/28/2024. This now extends out to the lateral aspect of the left mid lung field. Pleural spaces: Unremarkable. No pleural effusion. No pneumothorax. Heart/Mediastinum: Unremarkable. No cardiomegaly. Bones/joints: Unremarkable. XR/XR chest 1V portable [id number] IMPRESSION: Large mass in the left hilar station is again demonstrated and seen to better advantage on the chest CT dated 03/28/2024. This now extends out to the lateral aspect of the left mid lung field.
[2024-05-27 20:17] LABS: Basophils # 0.1 10^3/uL (0.0-0.1); Basophils % 0.1 %; Eosinophils # 0.1 10^3/uL (0.0-0.8); Eosinophils % 0.1 %; Hematocrit 30.5 % (37-53); Lymphocytes # 2.3 10^3/uL (0.8-4.8); Lymphocytes % 3.6 %; Mean Corpuscular HGB Conc 31.8 g/dL (30-55); Mean Corpuscular Hemoglobin 27.5 pg (27-33); Mean Corpuscular Volume 86.4 fl (82-101); Mean Platelet Volume 10.8 fL (7.4-10.4); Monocytes # 2.9 10^3/uL (0.2-0.9); Monocytes % 4.6 %; Neutrophils # 56.12 10^3/uL (1.8-7.7); Neutrophils % 88.3 %; Nucleated Red Blood Cells % 0 %; Platelet Count 316 10^3/cmm (157-399); Red Blood Count 3.53 10^6/uL (3.85-5.65); Red Cell Distribution Width 15.2 % (12.1-15.1)
--- NOTE | 2024-05-27 20:24 | ED_ITS ---
HPI - Weakness 2 General: Chief complaint: Weakness Stated complaint: WEAKNESS Time Seen by Provider: 05/27/24 19:59 History of Present Illness: 64-year-old man with a history of lung c ancer who presents emergency room by ambulance with weakness. He is complaining of generalized weakness as well as worse right-sided weakness. This is been for several days. He has been following. He supposed to go for radiation therapy yesterday but was too weak to go. He does not think he hit his head. He does not have any chest pain. Currently no altered mental status and he has slight increase in weakness of his right side versus his left on exam. Review of Systems 2 Narrative: Constitutional symptoms: Negative except as documented in HPI. Skin symptoms: Negative except as documented in HPI. Eye symptoms: Negative except as documented in HPI. ENMT symptoms: Negative except as documented in HPI. Respiratory symptoms: Negative except as documented in HPI. Cardiovascular symptoms: Negative except as documented in HPI. Gastrointestinal symptoms: Negative except as documented in HPI. Genitourinary symptoms: Negative except as documented in HPI. Musculoskeletal symptoms: Negative except as documented in HPI. Neurologic symptoms: Negative except as documented in HPI. Psychiatric symptoms: Negative except as documented in HPI. Endocrine symptoms: Negative except as documented in HPI. PFSH ED 2 PFSH: Medical History Hepatitis C No pertinent past medical history Surgical History No pertinent past surgical history Physical Exam 2 Narrative: EXAM NARRATIVE: General: Alert, no acute distress. Skin: Warm, dry. Head: Normocephalic, atraumatic. Neck: Supple, trachea midline. Eye: Extraocular movements are intact. Ears, nose, mouth and throat: Dry oral mucosa Cardiovascular: Regular, Normal peripheral perfusion. Respiratory: Lungs are clear to auscultation, respirations are non-labored, breath sounds are equal, Symmetrical chest wall expansion. Gastrointestinal: Soft, Nontender, Non distended Musculoskeletal: Normal ROM, no deformity. Neurological: Alert and oriented, No focal neurological deficit observed. Possible slight weakness in his right leg and arm compared to his left. He can lift both off the bed. Psychiatric: Cooperative, appropriate mood & affect. Course 2 Vital Signs: Vital signs: Vital Signs Temperature 97.7 F 05/27/24 19:59 Pulse Rate 105 H 05/27/24 22:31 Respiratory Rate 18 05/27/24 22:31 Blood Pressure 88/58 05/27/24 22:31 Pulse Oximetry 95 05/27/24 22:31 Oxygen Delivery Me thod Room Air 05/27/24 19:59 MDM - Weakness Medical Decision Making Medical decision making: Differential diagnosis for patient presenting with generalized weakness including but not limited to and based on the above HPI, review of systems and physical exam: Sepsis. Dehydration. Renal failure. Electrolyte abnormalities. Anemia. Congestive heart failure. Hypotension. Coronary syndrome. Hepatitis. Cirrhosis. Infections such as pneumonia, urinary tract infection, [place]ne illness, Cellulitis, Viral infections including influenza and Covid-19. Workup: labwork and lab/exam driven imaging ordered to evaluate, rule in and rule out above pathologies. Chest x-ray: Large mass on the left hilar station is demonstrated. Appears larger. This was reviewed and interpreted by myself the emergency room physician. I also reviewed the radiology report. CT of the chest without contrast: Enlarging left suprahilar mass. New pulmonary nodules. New pericardial effusion. This was reviewed and interpreted by myself the emergency room physician. I also reviewed the radiology report. CT of the head without contrast: Brain mets in the left frontal and right occipital lobes with surrounding vasogenic edema. Lab Review: Laboratory results were reviewed and interpreted by myself the emergency room physician. White count is 64,000 today. Last 4 measurements back in April were in the 40,000 range. I reviewed the patient's medical record. Reexamination: Patient remained stable. No increased work of breathing. No altered mental status. No focal motor deficits. Patient continues to have right-sided weakness. Consultation: I spoke with Dr. Chavez with the neurology service at [facility] in [place]. He is excepted the patient in transfer. He agrees with Decadron and recommends Keppra. Assessment and plan: Lung cancer Metastasis to brain Right-sided weakness ?IV Keppra and IV Decadron given in the emergency room - Discharged home - Discussed findings and plan with patient. Answered any questions. - All laboratory values were reviewed and interpreted personally by myself, the ER physician - All imaging was reviewed and interpreted personally by myself, the ER physician. - Evaluation and treatment of this problem were appropriate in the emergency setting -I spent a total of >35 minutes of critical care time managing the patient, independent of any other practitioner. -The time involved in the performance of separately reportable procedures was not counted towards critical care time. Lab Data 05/27/24 19:53 05/27/24 19:53 Radiology Impressions Chest X-Ray 05/27/24 20:07 IMPRESSION: Large mass in the left hilar station is again demonstrated and seen to better advantage on the chest CT dated 03/28/2024. This now extends out to the lateral aspect of the left mid lung field. Head CT 05/27/24 20:07 IMPRESSION: Brain metastasis in the left frontal and right occipital lobes with surrounding vasogenic edema. ADDENDUM: 05/27/24 2223 THIS REPORT CONTAINS FINDINGS THAT MAY BE CRITICAL TO PATIENT CARE. The findings were verbally communicated via telephone conference with [place] PICKERING at 10:21 PM CDT on 05/27/2024. The findings were acknowledged and understood. Chest CT 05/27/24 20:37 IMPRESSION: 1. Enlarging left suprahilar mass measuring up to at least 10.4 x 9.0 cm, previously 8.0 x 5.3 cm consistent with progression of neoplastic disease. 2. The left upper lobe pulmonary nodule (series 7, image 17) measures 1.1 x 0.7 cm, previously 1.0 x 0.7 cm. While there has been no interval increase in size this is still concerning for metastatic disease. 3. New 1.0 x 0.8 cm pulmonary nodule in the posterior aspect of the left upper lobe (series 7, image 16) concerning for metastatic disease. 4. Two AP window lymph nodes measuring up to 10 mm and 11 mm in short axis may represent metastatic disease. 5. New pericardial effusion measuring up to 13 mm in thickness along the right heart border. Laboratory Results WBC 63.58 10^3/uL (3.29-11.43) H* 05/27/24 19:53 RBC 3.53 10^6/uL (3.85-5.65) L 05/27/24 19:53 Hgb 9.70 g/dL (11.27-16.99) L 05/27/24 19:53 Hct 30.5 % (37-53) L 05/27/24 19:53 MCV 86.4 fl (82-101) 05/27/24 19:53 MCH 27.5 pg (27-33) 05/27/24 19:53 MCHC 31.8 g/dL (30-55) 05/27/24 19:53 RDW 15.2 % (12.1-15.1) H 05/27/24 19:53 Plt Count 316 10^3/cmm (157-399) 05/27/24 19:53 MPV 10.8 fL (7.4-10.4) H 05/27/24 19:53 Neut % (Auto) 88.3 % 05/27/24 19:53 Lymph % (Auto) 3.6 % 05/27/24 19:53 [place] % (Auto) 4.6 % 05/27/24 19:53 Eos % (Auto) 0.1 % 05/27/24 19:53 Baso % (Auto) 0.1 % 05/27/24 19:53 Neut # (Auto) 56.12 10^3/uL (1.8-7.7) H 05/27/24 19:53 Lymph # (Auto) 2.3 10^3/uL (0.8-4.8) 05/27/24 19:53 [place] # (Auto) 2.9 10^3/uL (0.2-0.9) H 05/27/24 19:53 Eos # (Auto) 0.1 10^3/uL (0.0-0.8) 05/27/24 19:53 Baso # (Auto) 0.1 10^3/uL (0.0-0.1) 05/27/24 19:53 Nucleated RBC % (auto) 0 % 05/27/24 19:53 Nucleated RBCs # 0.0 /100WBC 05/27/24 19:53 Specimen Type Arterial 05/27/24 20:34 Sample Site Brachial, right 05/27/24 20:34 ABG pH 7.51 (7.35-7.45) H 05/27/24 20:34 ABG pCO2 42.4 mmHg (35-45) 05/27/24 20:34 ABG pO2 93.4 mmHg (80.0-100.0) 05/27/24 20:34 ABG HCO3 33.4 mmol/L (22-26) H 05/27/24 20:34 ABG O2 Saturation 98.3 05/27/24 20:34 ABG Base Excess 9.4 mmol/L (-2.0-2.0) H 05/27/24 20:34 [place] Test N/a 05/27/24 20:34 A-a O2 Gradient 0.4 mmHg (5-10) L 05/27/24 20:34 Hematocrit 29.0 % (42-52) L 05/27/24 20:34 Hgb O2 Saturation 96.1 % (95-100) 05/27/24 20:34 Carboxyhemoglobin 1.2 %THgb (0.4-20.1) 05/27/24 20:34 Methemoglobin 0.9 % (0.4-1.5) 05/27/24 20:34 Total Hemoglobin 9.5 g/dL (14-18) L 05/27/24 20:34 Sodium 135.0 mmol/L (131-143) 05/27/24 20:34 Potassium 3.2 mmol/L (3.5-5.0) L 05/27/24 20:34 Glucose 126.0 mg/dL (70-115) H 05/27/24 20:34 Ionized Calcium 1.2 mmol/L (1.1-1.4) 05/27/24 20:34 O2 Delivery Device Nc 05/27/24 20:34 O2 Liters/Min 2.0 % 05/27/24 20:34 [place] Operator ID [email or web address] 05/27/24 20:34 Sodium 133 mmol/L (136-145) L 05/27/24 19:53 Potassium 3.5 mmol/L (3.5-5.1) 05/27/24 19:53 Chloride 91 mmol/L (98-107) L 05/27/24 19:53 Carbon Dioxide 29 mmol/L (22-29) 05/27/24 19:53 Anion Gap 16.5 (5-19) 05/27/24 19:53 BUN 8 mg/dL (8-23) 05/27/24 19:53 Creatinine 0.6 mg/dL (0.7-1.2) L 05/27/24 19:53 GFR Calculation 135.6 mL/min (90-130) H 05/27/24 19:53 Glucose 108 mg/dL (65-115) 05/27/24 19:53 Calculated Osmolality 275 mOsm/kg (285-295) L 05/27/24 19:53 Lactic Acid 1.4 mmol/L (0.5-2.2) 05/27/24 20:17 Calcium 8.6 mg/dL (8.5-10.5) 05/27/24 19:53 Total Bilirubin 0.6 mg/dL (0.15-1.2) 05/27/24 19:53 AST 23 U/L (0-40) 05/27/24 19:53 ALT 12 U/L (0-41) 05/27/24 19:53 Alkaline Phosphatase 243 U/L (40-130) H 05/27/24 19:53 C-Reactive Protein 124.4 mg/L (0.0-4.9) H 05/27/24 19:53 Total Protein 7.4 g/dL (6.6-8.7) 05/27/24 19:53 Albumin 2.9 g/dL (3.5-5.2) L 05/27/24 19:53 Globulin 4.5 g/dL (1.3-4.6) 05/27/24 19:53 Procalcitonin 0.39 ng/mL (0-0.5) 05/27/24 19:53 Urine Color Dark yellow (Yellow) 05/27/24 22: Urine Appearance Clear (CLEAR) 05/27/24: Urine pH 7.0 (5-7) 05/27/24: Ur Specific [place] 1.015 (1.005-1.030) 05/27/24: Urine Protein Trace (Negative) A 05/27/24 22: Urine Glucose (UA) Negative (Normal) 05/27/24 22: Urine Ketones Trace (Negative) 05/27/24: Urine Blood Negative (Negative) 05/27/24: Urine Nitrate Negative (Negative) 05/27/24 22: Urine Bilirubin Negative (Negative) 05/27/24: Urine Urobilinogen 1.0 mg/dL (Negative) 05/27/24: Ur Leukocyte Esterase Trace (Negative) A 05/27/24 22: Urine RBC 0-2 /hpf (0-2) 05/27/24 22:27 Urine WBC 0-5 /hpf (0-5) 05/27/24 22:27 Ur Squamous Epith Cells 0-5 /hpf (0-5) 05/27/24 22:27 Amorphous Sediment Not Reportable 05/27/24 22:27 Urine Bacteria None seen /hpf (NONE) 05/27/24 22:27 Hyaline Casts 2.46 /lpf 05/27/24 22:27 Coronavirus (PCR) Negative (Negative) 05/27/24 20:20 Influenza A (PCR) Negative (Negative) 05/27/24 20:20 Influenza Type B (PCR) Negative (Negative) 05/27/24 20:20 RSV (PCR) Negative (Negative) 05/27/24 20:20 All radiology interpretation(s) finalized by discharge Discharge Plan Discharge Patient Disposition: Xfer Short-Term Hosp Clinical Impression: Metastasis to brain, Lung cancer, Right sided weakness, Multiple falls Condition: Stable Coding Level of Care Code ED Computer Peripheral Equipment Operator for Chg Fwd Related Data Home Medications Medication Instructions Recorded Confirmed No Known Home Medications 03/28/24 03/28/24 Allergies Allergy/AdvReac Type Severity Reaction Status Date / Time No Known Allergies Allergy Verified 05/27/24 20:06
--- NOTE | 2024-05-27 20:37 | CTR_ITS ---
PROCEDURE INFORMATION: Exam: CT Chest Without Contrast; Diagnostic Exam date and time: 05/27/2024 9:07 PM Age: 64 years old Clinical indication: Other: Abnormal xray; Additional info: Abnormal chest xray TECHNIQUE: Imaging protocol: Diagnostic computed tomography of the chest without contrast. Radiation optimization: All CT scans at this facility use at least one of these dose optimization techniques: automated exposure control; mA and/or kV adjustment per patient size (includes targeted exams where dose is matched to clinical indication); or iterative reconstruction. COMPARISON: CT chest wo con [id number] 03/28/2024 1:31 AM RADIATION DOSE METRICS: Total DLP (mGy-cm): 299 FINDINGS: Lungs: Enlarging left suprahilar mass measuring up to at least 10.4 x 9.0 cm, previously 8.0 x 5.3 cm consistent with progression of neoplastic disease. The left upper lobe pulmonary nodule (series 7, image 17) measures 1.1 x 0.7 cm, previously 1.0 x 0.7 cm. While there has been no interval increase in size this is still concerning for metastatic disease. New 1.0 x 0.8 cm pulmonary nodule in the posterior aspect of the left upper lobe (series 7, image 16) concerning for metastatic disease. Pleural spaces: Small left-sided pleural effusion with atelectatic changes in the left lung base. Heart: Unremarkable. No cardiomegaly. New pericardial effusion measuring up to 13 mm in thickness along the right heart border. No coronary artery calcifications. Lymph nodes: Two AP window lymph nodes measuring up to 10 mm and 11 mm in short axis may represent metastatic disease. Vasculature: Unremarkable. No aortic aneurysm. Bones/joints: Unremarkable. No acute fracture. Soft tissues: Unremarkable. CT/CT chest con [id number] IMPRESSION: 1. Enlarging left suprahilar mass measuring up to at least 10.4 x 9.0 cm, previously 8.0 x 5.3 cm consistent with progression of neoplastic disease. 2. The left upper lobe pulmonary nodule (series 7, image 17) measures 1.1 x 0.7 cm, previously 1.0 x 0.7 cm. While there has been no interval increase in size this is still concerning for metastatic disease. 3. New 1.0 x 0.8 cm pulmonary nodule in the posterior aspect of the left upper lobe (series 7, image 16) concerning for metastatic disease. 4. Two AP window lymph nodes measuring up to 10 mm and 11 mm in short axis may represent metastatic disease. 5. New pericardial effusion measuring up to 13 mm in thickness along the right heart border.
[2024-05-27 20:44] LABS: ABG PCO2 42.4 mmHg (35-45); ABG PH Result 7.51 (7.35-7.45); Alveolar-Arterial Oxygen Gradi 0.4 mmHg (5-10); Base Excess ABG 9.4 mmol/L (-2.0-2.0); Blood Gas Sample Site Brachial, right; Blood Gas Sample Type Arterial; Carboxyhemoglobin 1.2 %THgb (0.4-20.1); HCO3 ABG 33.4 mmol/L (22-26); HGB O2 Sat 96.1 % (95-100); Ionized Calcium Level - ABG 1.2 mmol/L (1.1-1.4); Methemoglobin 0.9 % (0.4-1.5); Oxygen Device NC; Oxygen Saturation ABG 98.3; PO2 ABG 93.4 mmHg (80.0-100.0); Potassium Level - ABG 3.2 mmol/L (3.5-5.0); Total Hemoglobin 9.5 g/dL (14-18)
[2024-05-27 20:44] LABS: Slide Review Slide Review Perform
[2024-05-27 20:45] LABS: Alanine Aminotransferase 12 U/L (0-41); Albumin Level 2.9 g/dL (3.5-5.2); Alkaline Phosphatase 243 U/L (40-130); Anion Gap 16.5 (5-19); Aspartate Amino Transferase 23 U/L (0-40); C Reactive Protein 124.4 mg/L (0.0-4.9); Calcium 8.6 mg/dL (8.5-10.5); Carbon Dioxide 29 mmol/L (22-29); Chloride 91 mmol/L (98-107); Creatinine Clr Calc Pharmacy 79.7982; Globulin 4.5 g/dL (1.3-4.6); Glomerular Filtration Rate 135.6 mL/min (90-130); Glucose 108 mg/dL (65-115); Potassium 3.5 mmol/L (3.5-5.1); Sodium 133 mmol/L (136-145); Total Bilirubin 0.6 mg/dL (0.15-1.2); Total Protein 7.4 g/dL (6.6-8.7); White Blood Count 63.58 10^3/uL (3.29-11.43)
[2024-05-27 20:52] LABS: Procalcitonin 0.39 ng/mL (0-0.5)
[2024-05-27 21:05] LABS: Covid PCR NEGATIVE (Negative); Influenza A NEGATIVE (Negative); Influenza B NEGATIVE (Negative); Respiratory Syncytial Virus Ce NEGATIVE (Negative)
[2024-05-27 21:07] LABS: Blood Urea Nitrogen 8 mg/dL (8-23); Osmolality Calculated 275 mOsm/kg (285-295)
[2024-05-27 21:11] LABS: Lactic Sepsis W/Reflex 1.4 mmol/L (0.5-2.2)
[2024-05-27] MEDS: dexamethasone 10 mg/mL INJ IVP (22:27)
[2024-05-27 22:35] LABS: Bilirubin Urine Negative (Negative); Blood Urine Negative (Negative); Glucose Urine UA Negative (Normal); Ketones Urine Trace (Negative); Leukocyte Esterase Urine Trace (Negative); Nitrate Urine Negative (Negative); Protein Urine Trace (Negative); Specific Gravity, Urine 1.015 (1.005-1.030); Urine Appearance Clear (CLEAR)
[2024-05-27 22:40] LABS: Bacteria Urine None Seen /hpf; Hyaline Casts Urine 2.46 /lpf; RBC Urine 0-2 /hpf (0-2); Squamous Epithelial Cell Urine 0-5 /hpf (0-5); WBC Urine 0-5 /hpf (0-5)
[2024-05-27 23:02] LABS: Urine Color Dark Yellow (Yellow)
[2024-05-27] MEDS: levETIRAcetam 2,000 MG/200 ML PREMIX 400 MG IV (23:14)
--- NOTE | 2024-05-27 23:28 | ECG_ITS ---
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[id number] Requested By: Navya Dozier Order Number: [id number] Gómez MD: BRENDAN PERSON Measurements Intervals [place] Rate: 95 P: 270 TN: 188 QRS: 73 QRSD: 81 T: 78 QT: 320 QTc: 403 Interpretive Statements ECTOPIC ATRIAL RHYTHM WITH FREQUENT SUPRAVENTRICULAR PREMATURE COMPLEXES IN A BIGEMINAL PATTERN MINIMAL ST DEPRESSION [0.025+ mV ST DEPRESSION] ABNORMAL RHYTHM ECG Compared to ECG 05/27/2024 20:16:31 Ectopic atrial rhythm now present ST (T wave) deviation now present Sinus rhythm no longer present Short [place] interval no longer present Electronically Signed On 05-29-2024 11:55:54 CDT by BRENDAN PERSON [id number]
[2024-05-27] MEDS: amiodarone 50 mg/mL SDV 3 mL 150 MG IVP (23:45)
[2024-05-27] MEDS: sodium chloride 0.9% (plus) 100 ML 400 ML (23:49)
[2024-05-28] VITALS (12 sets, daily range): BP systolic 77–107; BP diastolic 49–64; PULSE 64–155; RESP 16–20; O2SAT 93–99
[2024-05-28] MEDS: sodium chloride 0.9% 500 ML 999 ML IV (00:27)
== END 2024-05-28 03:49 | disposition short-term general hospital (02) ==
PROVIDERS: Emergency Provider Emergency Medicine
DX: R53.1 Weakness (principal); R29.6 Repeated falls; C34.90 Malignant neoplasm of unspecified part of unspecified bronchus or lung; C79.31 Secondary malignant neoplasm of brain; Z86.19 Personal history of other infectious and parasitic diseases
CPT/HCPCS: 0241U; 36415; 36600; 70450; 71045; 71250; 80051; 80053; 81001; 82330; 82805; 83605; 84145; 85025; 86140; 87040; 93005; 96374; 96375; 99285; A4222; J0282; J0283; J1100; J1953; J7040